=== PATIENT | male | born 1955 | race Caucasian/White ===

== ENCOUNTER 2016-09-11 21:25 | Emergency (ER) | payer SELFPAY ==
[~2016-09-11] VITALS: Ht 177.8 cm; Wt 65.0 kg
[2016-09-11 22:07] VITALS: BP 131/91
[2016-09-11 22:29] LABS: HEMOGLOBIN 9.7 g/dL (13.7-18.0)
[2016-09-11] MEDS ORDERED: PLEASE ENTER ALLERGIES MC SCH ×2 (22:30)
[2016-09-11] MEDS ORDERED: ASPIRIN 81 MG TABLET CHEW PO ONE (22:30)
[2016-09-11 22:40] LABS: ASPARTATE AMINO TRANSFERASE 15 U/L (15-37); BLOOD UREA NITROGEN 18 mg/dL (7-18)
[2016-09-11 22:45] LABS: IS PT STATUS REG ER OR PRE ER? YES
== END 2016-09-12 00:20 | disposition home or self-care (01) ==
LOC: ED 09-12 00:14
DX: R07.89 Other chest pain (principal)
CPT/HCPCS: 36415; 71010; 80053; 84484; 85025; 85379; 85610; 85730; 93005